=== PATIENT | female | born 1965 | race Caucasian/White ===

== ENCOUNTER → 2019-10-05 | Outpatient (CLI) | payer BC, OTHER ==
[~2019-10-05] MED LIST: FENTANYL CITRATE/PF 100MCG/2 ML INJ ONE; HEPARIN SOD (PORCINE) 1000 UNIT/ML SDV ONE; LIDOCAINE 2% /EPINEPHRINE 20 ML SDV INJ ONE; LIDOCAINE HCL 1% LOCAL INJ 20 ML VIAL ONE; MIDAZOLAM HCL 2 MG/2 ML VIAL ONE; SODIUM CHLORIDE 0.9% 250ML 250 ML ONE
[2019-10-05 08:19] LABS: HEMOGLOBIN 12.2 g/dL (12.0-16.0)
[2019-10-05 08:31] LABS: INR 0.84; PARTIAL THROMBOPLASTIN TIME 26.2 seconds (23.8-35.5)
--- NOTE | 2019-10-05 12:22 | Diagnostic Imaging Report ---
Chest port placement. History: ALS, need for long-term IV therapy. Modality: Sonography and fluoroscopy. Sedation: Versed 1 mg and fentanyl 50 mcg was given intravenously for conscious sedation. Vital signs were monitored throughout the procedure by a nurse, and remained stable. Physician intra-service time was 30. Director [employer] Database: MD Liza. Roll Forming Machine Operator: None. Approach: Right internal jugular vein Estimated blood loss: < 5 cc. Specimen: None. Fluoroscopy Time: 0.3 min. Dose (Ka,r): 0.8 mGy. Technique: Informed written consent was obtained. Discussion of risks, benefits, and alternatives were made with the patient. The patient expressed understanding and agreed to proceed. All elements maximal sterile barrier technique was utilized for this procedure, including utilization of sterile scrub solution for skin prep, a large sterile sheet to cover the areas of the patient that were not prepped, and hand hygiene, mask, head covering, and sterile gown for performing radiologist and scrub technologist. The skin was anesthetized with 2% lidocaine.Ultrasound evaluation showed a patent and compressible right internal jugular vein, which was punctured under direct real-time ultrasound guidance with a micropuncture needle. An ultrasound image was saved to PACS. A 0.018 inch wire was placed through the needle into the right atrium. A 4 [place] micropuncture sheath was placed and a 0.0 3 5-in. wire was advanced into the IVC. A pocket was then created within the right anterior chest wall. A 7.8 [place] Deltec port catheter was brought through the tunnel and port reservoir placed within the pocket. A peel-away sheath was right IJ. The catheter was cut to appropriate length and advanced through the sheath with distal tip terminating over the cavoatrial junction. The port aspirated/flushed use of the postplacement. The port was locked with heparin. The port pocket was closed using 3-0 Monocryl and Dermabond. The venotomy was closed using Dermabond. Sterile dressings were applied. The patient tolerated procedure without immediate consultation. Impression: Successful, uncomplicated placement of a right internal jugular chest port using sonographic and fluoroscopic guidance and conscious sedation. Signed by: Dr. Kevin De Jesus MD on 10/05/2019 12:19 PM
== END ==
LOC: DX 07:48
PROVIDERS: ATTEND Student in an Organized Health Care Education/Training Program
DX: G12.21 Amyotrophic lateral sclerosis (principal); R53.1 Weakness; R29.6 Repeated falls; Z11.59 Encounter for screening for other viral diseases
CPT/HCPCS: 36415; 36561; 76937; 85014; 85049; 85610; 85730; C1769; J1644; J2001 ×2; J2250; J3010; J7050; U0002; 99152; 99153